=== PATIENT | male | born 1990 | race Caucasian/White ===

== ENCOUNTER 2022-06-18 16:45 | Emergency (ER) | payer OTHER ==
[~2022-06-18] VITALS: Ht 175.3 cm; Wt 80.2 kg
[2022-06-18] MEDS ORDERED: AMPICILLIN SOD/SULBACTAM SOD 3 GM in D5W MINI-BAG PLUS 100 ML IV ONE (19:00)
[2022-06-18 20:00] LABS: RSV AMPLIFICATION NEGATIVE (NEGATIVE)
[2022-06-18 21:56] VITALS: BP 159/77
== END 2022-06-18 21:58 | disposition short-term general hospital (02) ==
LOC: M ED 16:45
DX: S02.841A Fracture of lateral orbital wall, right side, initial encounter for closed fracture (principal); S02.40CA Maxillary fracture, right side, initial encounter for closed fracture; S01.111A Laceration without foreign body of right eyelid and periocular area, initial encounter; W22.8XXA Striking against or struck by other objects, initial encounter; Z87.891 Personal history of nicotine dependence; Y99.0 Civilian activity done for income or pay
CPT/HCPCS: 70450; 70486; 72125; 87631; 96365; 99285; J0295